=== PATIENT | male | born 1935 | race Caucasian/White ===

== ENCOUNTER 2017-01-25 13:55 | Emergency (ER) | payer OTHER, MEDICARE ==
[~2017-01-25] VITALS: Ht 177.8 cm; Wt 85.9 kg
[2017-01-25] MEDS ORDERED: LO-DOSE ASPIRIN81 M2 PO (15:02)
[2017-01-25] MEDS ORDERED: ESSENTIAL DAIL1 EACH PO (15:03)
[2017-01-25 15:37] VITALS: BP 140/99
== END 2017-01-25 15:38 | disposition home or self-care (01) ==
LOC: EXP 13:55 → EME 13:55 → EXP 15:38
DX: S40.012A Contusion of left shoulder, initial encounter (principal); W01.0XXA Fall on same level from slipping, tripping and stumbling without subsequent striking against object, initial encounter; Y92.39 Other specified sports and athletic area as the place of occurrence of the external cause
CPT/HCPCS: 73030; 99281; 99283